=== PATIENT | female | born 1965 | race Caucasian/White ===

== ENCOUNTER 2017-03-13 19:40 | Emergency (ER) | payer OTHER ==
[~2017-03-13 19:40] MED LIST: Ondansetron HCl/PF 4 MG/2 ML Vial ONE; Sodium Chloride 0.9% 1,000 ML BAG ONE
[2017-03-13] MEDS ORDERED: Ondansetron HCl/PF 4 MG/2 ML Vial ONE (19:53)
[2017-03-13] MEDS ORDERED: Ketorolac Tromethamine 30 MG/ML VIAL ONE (19:53)
[2017-03-13 20:20] LABS: Band 2 % (5-11); Hemoglobin 13.7 g/dL (12.0-16.0); Lymphocytes 32 % (21-51); MDiff Complete? YES; Mean Corpuscular HGB CONC 33.6 g/dL (32.0-36.0); Mean Corpuscular Hemoglobin 30.8 pg (27.0-31.0); Mean Corpuscular Volume 91.8 fl (81.0-99.0); Mean Platelet Volume 6.7 fL (7.4-10.4); Monocytes 6 % (0-10); Neutrophil 50 % (42-75); PLT Morphology Comment Appears Adequate; Platelet Count 278 thou/uL (130-400); RBC Distribution Width 11.4 % (11.5-14.5); RBC Morphology Normal; Reactive Lymphocytes 10 % (0-10); Red Blood Cell (RBC) Count 4.44 mill/uL (4.20-5.40); White Blood Cell (WBC) Count 6.8 thou/uL (4.8-10.8)
--- NOTE | 2017-03-13 20:20 | CT ---
CT OF ABDOMEN AND PELVIS PERFORMED WITHOUT CONTRAST ENHANCEMENT 03/13/17 HISTORY: Left flank pain. COMPARISON: 05/24/16 study. The lung bases are clear. The liver, spleen, and pancreas regions appear unremarkable given the limitations of a noncontrast s tudy. Postoperative changes of the stomach are noted. The gallbladder has been removed. Right and left adrenal glands are normal in appearance. There is a punctate lower pole left renal ca lculus. There is left sided hydronephrosis related to a proximal left ureteral calculus which measur es 8 mm in maximum length. The ureter below this level does not show any additional calculi. There i s no significant periaortic or mesenteric adenopathy. CT OF PELVIS PERFORMED WITHOUT CONTRAST ENHANCEMENT: Bilateral tubal ligation is noted. The appendix is normal. Trace free fluid is seen. IMPRESSION: Mild to moderate left sided hydronephrosis related to a 7 to 8 mm proximal left ureteral calculus. POS: [facility]
[2017-03-13 20:22] LABS: ALT (SGPT) 11 U/L (8-55); AST (SGOT) 13 U/L (5-34); Albumin 3.9 g/dL (3.5-5.0); Alkaline Phosphatase 74 U/L (40-150); Anion Gap 13 mmol/L (10-20); BUN (Urea Nitrogen) 18 mg/dL (7.0-18.7); Bilirubin, Total 0.3 mg/dL (0.2-1.2); Calc. Creatinine Clearance 0 mL/min (70-130); Carbon Dioxide 26 mmol/L (22-29); Chloride 105 mmol/L (98-107); Estimated GFR-MDRD 81; Globulin 2.8 g/dL (2.4-3.5); Glucose 104 mg/dL (70-105); Potassium 4.3 mmol/L (3.5-5.1); Protein, Total 6.7 g/dL (6.0-8.3); Sodium 140 mmol/L (136-145)
[2017-03-13 20:55] LABS: Pregnancy Test - Urine (BHCG) Negative (Negative); Pregu Control Background? CLEAR/WHITE (CLR/WHITE); Pregu Control Bar Appear? YES (CONTROL BAR); Specific Gravity 1.025 (1.002-1.036)
[2017-03-13 20:56] LABS: Bilirubin Negative (Negative); Blood, Urine Large (Negative); Clarity Cloudy (Clear); Glucose, Urine (Dipstick) Negative (Negative); Icto Negative (Negative); Leukocyte Negative (Negative); Nitrite Negative (Negative); Protein, Urine (Dipstick) 100 mg/dL (Neg-Trace); Specific Gravity, Urine 1.025 (1.005-1.030); Urobilinogen 0.2 mg/dL (0.2-1.0); pH, Urine 5.5 (5.0-9.0)
[2017-03-13 21:00] LABS: RBC/HPF GREATER THAN 50-TNTC HPF (0-3)
[2017-03-13 21:02] LABS: Bacteria/HPF 3+ HPF (None Seen); Squamous Epithelial 0-3 HPF (0-3)
[2017-03-13] MEDS ORDERED: HYDROcodone/Acetaminophen 10/325 mg Tablet ONE (21:27)
== END 2017-03-13 22:00 | disposition home or self-care (01) ==
LOC: MADERS 19:40
DX: N13.2 Hydronephrosis with renal and ureteral calculous obstruction (principal); N39.0 Urinary tract infection, site not specified; K21.9 Gastro-esophageal reflux disease without esophagitis; F17.210 Nicotine dependence, cigarettes, uncomplicated
CPT/HCPCS: 74176; 80053; 81001; 81025; 85025; 87086; 96361; 96374; 96375; J1885; J2405; J7050

== ENCOUNTER 2018-05-18 22:09 | Emergency (ER) | payer OTHER ==
[~2018-05-18 22:09] MED LIST changes: -Ondansetron HCl/PF 4 MG/2 ML Vial ONE
[2018-05-18] MEDS ORDERED: Tamsulosin HCl 0.4 MG CAP ONE (22:31)
[2018-05-18] MEDS ORDERED: Fentanyl 100 MCG/2 ML VIAL ONE (22:31)
[2018-05-18 22:38] LABS: Bilirubin Negative (Negative); Blood, Urine Moderate (Negative); Clarity Clear (Clear); Glucose, Urine (Dipstick) Negative (Negative); Leukocyte Negative (Negative); Nitrite Negative (Negative); Protein, Urine (Dipstick) 30 mg/dL (Neg-Trace); Specific Gravity, Urine 1.025 (1.005-1.030); pH, Urine 5.5 (5.0-9.0)
[2018-05-18 22:57] LABS: Bacteria/HPF Rare-Few HPF (None Seen); Pregnancy Test - Urine (BHCG) Negative (Negative); Pregu Control Background? CLEAR/WHITE (CLR/WHITE); Pregu Control Bar Appear? YES (CONTROL BAR); Specific Gravity 1.025 (1.002-1.036)
[2018-05-18 23:02] LABS: #Basophils 0.1 thou/uL (0.0-0.2); #Lymphocytes 3.1 thou/uL (1.20-3.40); #Monocytes 0.5 thou/uL (0.11-0.59); #Neutrophils 3.5 thou/uL (1.40-6.50); %Eosinophils 0.1 % (0.0-10.0); %Lymphocytes 43.2 % (21.0-51.0); %Monocytes 7.4 % (0.0-10.0); %Neutrophils 48.3 % (42.0-75.0); Hemoglobin 12.8 g/dL (12.0-16.0); Mean Corpuscular HGB CONC 34.4 g/dL (32.0-36.0); Mean Corpuscular Hemoglobin 31.1 pg (27.0-31.0); Mean Corpuscular Volume 90.6 fL (78.0-98.0); Mean Platelet Volume 6.3 fL (7.4-10.4); Platelet Count 291 thou/uL (130-400); Red Blood Cell (RBC) Count 4.12 mill/uL (4.20-5.40); White Blood Cell (WBC) Count 7.2 thou/uL (4.8-10.8)
--- NOTE | 2018-05-18 23:03 | CT ---
CT OF ABDOMEN AND PELVIS: Date: 05-18-18 Comparison: 03-13-17 History: Abdominal pain. Technique: Serial axial CT imaging is obtained at 5 mm intervals from lung bases through pubic symphy sis without contrast. Coronal reformatted imaging obtained. FINDINGS: The lack of contrast limits assessment of the viscera bowel vascular structures and for lymphadenopat hy. The imaged lung bases appear grossly unremarkable. There are cholecystectomy clips present. There is a suture line associated with the gastric body. There is a small sliding type hiatal hernia, stable. The liver, spleen, pancreas, and adrenal glands are unremarkable. There is no nephrolithiasis or evidence of obstructive uropathy on the right. There is hydronephrosis and proximal hydroureter on the left. There is an obstructing stone within th e left ureter at the axial level of the L4 vertebral body. This obstructing stone measures 7-8 mm in craniocaudal dimension. Of note, this stone was seen within the left ureter on the 03-13-17 examination and has only slightly migrated distally when compared to that study. There is a punctate intrarenal calculus within the lower pole of the left kidney. No additional obstr ucting stone is seen. Trace fluid noted in the pelvic cul-de-sac. No evidence for bowel inflammatory change or bowel obstruction. The appendix is unremarkable. Review of the osseous structures demonstrates no worrisome lytic or blastic lesion. When compared to 03-13-17 examination, the degree of hydronephrosis and proximal hydroureter on the lef t has not significantly changed. IMPRESSION: 1. Mild to moderate left sided hydronephrosis secondary to a 7-8 mm stone within the left ureter. Thi s stone has migrated only slightly distally when compared to the 03-13-17 exam and the degree of hydron ephrosis/hydroureter on the left is unchanged. Additional incidental findings as described above. POS: [facility]
[2018-05-18 23:13] LABS: Anion Gap 10 mmol/L (10-20); BUN (Urea Nitrogen) 19 mg/dL (7.0-18.7); Calc. Creatinine Clearance 0 mL/min (70-130); Calcium 8.7 mg/dL (7.8-10.44); Carbon Dioxide 25 mmol/L (22-29); Chloride 109 mmol/L (98-107); Estimated GFR-MDRD Greater than 90; Glucose 64 mg/dL (70-105); Sodium 140 mmol/L (136-145)
[2018-05-18] MEDS ORDERED: HYDROcodone/Acetaminophen 10/325 mg Tablet ONE (23:21)
[2018-05-18] MEDS ORDERED: Acetaminophen 325 MG TAB ONE (23:21)
[2018-05-18] MEDS ORDERED: Ketorolac Tromethamine 30 MG/ML VIAL ONE (23:21)
[2018-05-18] MEDS ORDERED: Promethazine 25 MG TAB ONE (23:29)
== END 2018-05-18 23:38 | disposition home or self-care (01) ==
LOC: MADERS 22:09
DX: N13.2 Hydronephrosis with renal and ureteral calculous obstruction (principal); K21.9 Gastro-esophageal reflux disease without esophagitis; F17.210 Nicotine dependence, cigarettes, uncomplicated
CPT/HCPCS: 36415; 74176; 80048; 81003; 81015; 81025; 85025; 96361; 96374; 96375; J1885; J3010; J7050

== ENCOUNTER 2018-10-30 16:51 | Outpatient (CLI) | payer OTHER ==
--- NOTE | 2018-10-30 18:28 | RAD ---
THREE VIEWS LUMBARS SPINE 10/30/18 COMPARISON: None. HISTORY: Low back pain following a fall. FINDINGS: Clips in right upper quadrant suggests prior cholecystectomy. Lumbar pedicles appear intact on frontal imaging. Lumbar vertebral body height an alignment is within normal limits. There is no anterolisthesis or ret rolisthesis. No evidence for acute fracture or dislocation. IMPRESSION: No acute osseous abnormality. POS: [facility]
== END 2018-10-30 16:52 | disposition home or self-care (01) ==
LOC: MADRAD 16:51
PROVIDERS: ATTEND Family Medicine
DX: M54.5 Low back pain (principal)
CPT/HCPCS: 72100

== ENCOUNTER 2021-08-25 12:44 | Emergency (ER) | payer BC, OTHER ==
[2021-08-25 13:26] LABS: Clarity Cloudy (Clear); Specific Gravity, Urine 1.025 (1.002-1.036)
[2021-08-25 13:27] LABS: Leukocyte Trace (Negative); Nitrite Negative (Negative); pH, Urine 6.5 (5.0-9.0)
[2021-08-25 13:28] LABS: Bilirubin 1+ (Negative); Glucose, Urine (Dipstick) Negative (Negative); Ketone, Urine Trace mg/dL (Negative); Protein, Urine (Dipstick) 30 mg/dL (Neg-Trace)
[2021-08-25 13:29] LABS: Bacteria/HPF Rare-Few HPF (None Seen); Blood, Urine Large (Negative); RBC/HPF Greater than 50 HPF (0-3); Squamous Epithelial 0-3 HPF (0-3); WBC/HPF 0-3 HPF (0-3)
[2021-08-25] MEDS ORDERED: Ibuprofen 600 MG TAB ONE (13:34)
[2021-08-25 13:43] LABS: #Basophils 0.1 thou/uL (0.0-0.2); #Lymphocytes 1.9 thou/uL (1.20-3.40); #Monocytes 0.4 thou/uL (0.11-0.59); #Neutrophils 3.4 thou/uL (1.40-6.50); %Eosinophils 0.1 % (0.0-10.0); %Lymphocytes 33.2 % (21.0-51.0); %Monocytes 6.6 % (0.0-10.0); %Neutrophils 59.1 % (42.0-75.0); Hemoglobin 13.5 g/dL (12.0-16.0); Mean Corpuscular HGB CONC 33.1 g/dL (32.0-36.0); Mean Corpuscular Hemoglobin 30.9 pg (27.0-31.0); Mean Corpuscular Volume 93.4 fL (78.0-98.0); Mean Platelet Volume 6.6 fL (7.4-10.4); Platelet Count 277 thou/uL (130-400); RBC Distribution Width 11.5 % (11.5-14.5); Red Blood Cell (RBC) Count 4.36 mill/uL (4.20-5.40); White Blood Cell (WBC) Count 5.7 thou/uL (4.8-10.8)
[2021-08-25 13:57] LABS: ALT (SGPT) 11 U/L (8-55); AST (SGOT) 13 U/L (5-34); Albumin 3.9 g/dL (3.5-5.0); Alkaline Phosphatase 90 U/L (40-110); Anion Gap 11 mmol/L (10-20); BUN (Urea Nitrogen) 13 mg/dL (9.8-20.1); Bilirubin, Total 0.3 mg/dL (0.2-1.2); Calc. Creatinine Clearance 0 mL/min (70-130); Calcium 8.9 mg/dL (7.8-10.44); Carbon Dioxide 27 mmol/L (22-29); Chloride 107 mmol/L (98-107); Globulin 2.8 g/dL (2.4-3.5); Glucose 74 mg/dL (70-105); Lipase 39 U/L (8-78); Potassium 4.2 mmol/L (3.5-5.1); Protein, Total 6.7 g/dL (6.0-8.3); Sodium 141 mmol/L (136-145)
[2021-08-25] MEDS ORDERED: Ketorolac Tromethamine 60 MG/2 ML VIAL ONE (15:22)
== END 2021-08-25 15:37 | disposition home or self-care (01) ==
LOC: MADERS 12:44
DX: N20.0 Calculus of kidney (principal); K21.9 Gastro-esophageal reflux disease without esophagitis; F17.210 Nicotine dependence, cigarettes, uncomplicated
CPT/HCPCS: 36415; 74176; 80053; 81003; 81015; 83605; 83690; 85025; 87086; J1885

== ENCOUNTER 2021-09-21 02:20 | Emergency (ER) | payer BC ==
[2021-09-21] MEDS ORDERED: Ondansetron PF 4 MG/2 ML Vial ONE ×2 (03:05→03:53)
[2021-09-21] MEDS ORDERED: Ketorolac Tromethamine 30 MG/ML VIAL ONE ×2 (03:05→03:59)
[2021-09-21 03:08] LABS: #Basophils 0.1 thou/uL (0.0-0.2); #Lymphocytes 2.1 thou/uL (1.20-3.40); #Monocytes 0.7 thou/uL (0.11-0.59); #Neutrophils 5.6 thou/uL (1.40-6.50); %Basophils 1.2 % (0.0-1.0); %Eosinophils 0.4 % (0.0-10.0); %Lymphocytes 24.8 % (21.0-51.0); %Monocytes 8.3 % (0.0-10.0); %Neutrophils 65.4 % (42.0-75.0); Mean Corpuscular Hemoglobin 30.5 pg (27.0-31.0); Mean Corpuscular Volume 92.4 fL (78.0-98.0); Mean Platelet Volume 6.6 fL (7.4-10.4); Platelet Count 295 thou/uL (130-400); RBC Distribution Width 11.5 % (11.5-14.5); Red Blood Cell (RBC) Count 4.27 mill/uL (4.20-5.40); White Blood Cell (WBC) Count 8.5 thou/uL (4.8-10.8)
[2021-09-21 03:30] LABS: ALT (SGPT) 12 U/L (8-55); AST (SGOT) 15 U/L (5-34); Alkaline Phosphatase 89 U/L (40-110); Anion Gap 12 mmol/L (10-20); BUN (Urea Nitrogen) 25 mg/dL (9.8-20.1); Bilirubin, Total 0.4 mg/dL (0.2-1.2); Calc. Creatinine Clearance 0 mL/min (70-130); Calcium 9.6 mg/dL (7.8-10.44); Carbon Dioxide 26 mmol/L (22-29); Chloride 103 mmol/L (98-107); Globulin 2.9 g/dL (2.4-3.5); Glucose 86 mg/dL (70-105); Lipase 30 U/L (8-78); Potassium 3.8 mmol/L (3.5-5.1); Protein, Total 6.9 g/dL (6.0-8.3); Sodium 137 mmol/L (136-145)
[2021-09-21 03:31] LABS: CK (CPK) 45 U/L (29-168); CRP (Inflammatory) Less than 0.50 mg/dL (= or < 0.5)
[2021-09-21 03:40] LABS: Bilirubin Small (Negative); Blood, Urine Large (Negative); Clarity Cloudy (Clear); Glucose, Urine (Dipstick) Negative (Negative); Ketone, Urine Negative (Negative); Leukocyte Negative (Negative); Nitrite Negative (Negative); Protein, Urine (Dipstick) Negative (Neg-Trace); Urobilinogen 0.2 mg/dL (Less than 2)
[2021-09-21 03:41] LABS: Specific Gravity, Urine 1.026 (1.002-1.036)
[2021-09-21 03:47] LABS: Bacteria/HPF 2+ HPF (None Seen); Mucous/LPF 2+ LPF (<2+); RBC/HPF Greater than 50 HPF (0-3); Transitional Epithelial 0-3 HPF (None Seen)
[2021-09-21] MEDS ORDERED: Tamsulosin HCl 0.4 MG CAP ONE (03:53)
[2021-09-21] MEDS ORDERED: Sodium Chloride 0.9% 100 ML ONE (04:37)
[2021-09-21] MEDS ORDERED: cefTRIAXone\\ROCEPHIN 2 GM VIAL ONE (04:37)
== END 2021-09-21 05:14 | disposition home or self-care (01) ==
LOC: MADERS 02:20
DX: N13.2 Hydronephrosis with renal and ureteral calculous obstruction (principal); K21.9 Gastro-esophageal reflux disease without esophagitis; F17.210 Nicotine dependence, cigarettes, uncomplicated
CPT/HCPCS: 74176; 80053; 81003; 81015; 82550; 83605; 83690; 85025; 86140; 94760; 96365; 96375; 96376; J0696; J1885; J2405; J3490